=== PATIENT | male | born 1965 | race Two or more races ===

== ENCOUNTER 2019-09-29 09:36 | Inpatient (IN) | payer BC, OTHER ==
[~2019-09-29] VITALS: Ht 172.7 cm; Wt 80.0 kg
[~2019-09-29 09:36] MED LIST: CIPR500T3 PO
[2019-09-29] MEDS ORDERED: DOXYCYCLINE 100 MG in DEXTROSE 5% 250 ML IVPB ONE (10:30)
[2019-09-29] MEDS ORDERED: CEFTRIAXONE PMX 1GM/50ML 50 ML IVPB ONE (10:30)
--- NOTE | 2019-09-29 10:33 | NUR ---
PT STATES FOUND OUT HE WAS COVID19 POSITIVE 09/23/19. STATES INCREASING COUGH SINCE WITH SOME SOB. PT PLACED ON MONITORS AND 2L O2 VIA NC TO MAINTAIN SAT >90%. IV STARTED, LABS AND BLOOS CULTURES X1 DRAWN. LABE AT BEDSIDE FOR REMAINING DRAW. PT CURRENTLY PROTECTING OWN AIRWAY WELL, NO RESPIR DISTRESS, HOWEVER PT WITH VERY FREQUENT COUGHING. WILL FOLLOW ORDERS.
[2019-09-29] MEDS ORDERED: CEFTRIAXONE PMX 1GM/50ML 50 ML ONE (10:42)
[2019-09-29 11:01] LABS: ALANINE AMINOTRANSFERASE 46 U/L (12-78); ALBUMIN 3.4 g/dL (3.4-5.0); ANION GAP 7 mmol/L (5-15); CHLORIDE 100 mmol/L (98-107); CREATININE 1.07 mg/dL (0.7-1.3)
[2019-09-29 11:08] LABS: ALKALINE PHOSPHATASE 47 U/L (45-117); BILIRUBIN,TOTAL 1.1 mg/dL (0.2-1.0); TOTAL PROTEIN 8.9 g/dL (6.4-8.2)
[2019-09-29 11:09] LABS: BASOPHILS # (AUTO) 0.05 x10^3/uL (0-0.1); BASOPHILS % (AUTO) 0 % (0-1); EOSINOPHILS # (AUTO) 0.03 x10^3/uL (0-0.4); EOSINOPHILS % (AUTO) 0 % (1-7); LYMPHOCYTES # (AUTO) 1.86 x10^3/uL (1-3.4); LYMPHOCYTES % (AUTO) 14 % (22-44); MD NO; MEAN CORPUSCULAR HEMOGLOBIN 29.3 pg (27.5-34.5); MEAN CORPUSCULAR HGB CONC 32.6 g/dL (33.2-36.2); MEAN CORPUSCULAR VOLUME 89.8 fL (81-97); MONOCYTES # (AUTO) 0.78 x10^3/uL (0.2-0.8); MONOCYTES % (AUTO) 6 % (2-9); NEUTROPHILS # (AUTO) 10.65 x10^3/uL (1.8-6.8); NEUTROPHILS % (AUTO) 80 % (42-75); PLATELET COUNT 165 x10^3/uL (130-400); RED BLOOD COUNT 5.61 x10^6/uL (4.38-5.82)
[2019-09-29 11:48] LABS: D-DIMER (DIC) 0.62 ug/mlFEU (0.00-0.52); PROTIME 11.7 Seconds (9.6-11.5)
--- NOTE | 2019-09-29 12:13 | NUR ---
PT RESTING IN BED, REMAINS ON MONITORS. IVABX INFUSING PER ORDERS. NO RESPIR DISTRESS, PROTECTING OWN AIRWAY WELL. CONT TO MONITOR.
--- NOTE | 2019-09-29 13:45 | NUR ---
PT RESTING IN BED, REMAINS ON MONITORS, VSS. PT REMAINS AWARE OF POC, TO BE [facility] ADMIT. CONT TO MONITOR.
--- NOTE | 2019-09-29 14:50 | NUR ---
PT GIVEN URINAL, RESTING IN BED. PT REMAINS ON MONITORS, VSS. NO RESPIR DISTRESS NOTED, PT PROTECTING OWN AIRWAY WELL. PT WILL BE ER HOLD, AWAITING ADMIT BED. CONT TO MONITOR.
--- NOTE | 2019-09-29 15:00 | NUR ---
PT GIVEN WATER PER REQUEST.
--- NOTE | 2019-09-29 15:05 | NUR ---
ADMITING MD AT BEDSIDE FOR ASSESSMENT.
--- NOTE | 2019-09-29 15:26 | NUR ---
PT DOES NOT WANT ANY INFORMATION RELEASED TO FAMILY AND FRIENDS.
[2019-09-29] MEDS ORDERED: LABETALOL 5MG/ML, 20ML IVPush PRN (15:30)
[2019-09-29] MEDS ORDERED: GUAIFENESIN/DM 200-20MG, 10ML UDC PO PRN (15:30)
[2019-09-29] MEDS ORDERED: ENOXAPARIN 60 MG/0.6 ML SQ SCH (15:30)
[2019-09-29] MEDS ORDERED: ONDANSETRON 2MG/ML, 2ML IVPush PRN (15:30)
[2019-09-29] MEDS ORDERED: ACETAMINOPHEN 325 MG TABLET PO PRN (15:30)
[2019-09-29 15:39] LABS: FREE T4 (FREE THYROXINE) 1.37 ng/dL (0.76-1.46)
[2019-09-29] MEDS ORDERED: ENOXAPARIN 60 MG/0.6 ML ONE (16:05)
[2019-09-29] MEDS ORDERED: methylPREDNISolone SOD SUCC 40 MG/ML ONE (16:05)
[2019-09-29] MEDS: methylPREDNISolone SOD SUCC 40 MG/ML IVPush SCH (16:14)
[2019-09-29] MEDS: LACTATED RINGERS 1,000 ML IV SCH (16:15)
--- NOTE | 2019-09-29 16:29 | NUR ---
REPORT GIVEN TO SHIRLEY JIM. PT OK TO TRANSFER TO FLOOR.
[2019-09-29] MEDS: ASCORBIC ACID 500 MG TABLET PO SCH ×2 (17:14→22:22)
[2019-09-29 17:27] VITALS: BP 124/79
[2019-09-29] MEDS: ALBUTEROL HFA 90 MCG/SPRAY INH SCH ×2 (17:39→22:22)
[2019-09-29 20:24] VITALS: BP 114/74
[2019-09-29] MEDS: MELATONIN 5 MG TABLET PO SCH (22:22)
[2019-09-29] MEDS: FAMOTIDINE 20 MG TABLET PO SCH (22:22)
[2019-09-30 01:04] VITALS: BP 117/74
[2019-09-30] MEDS: LACTATED RINGERS 1,000 ML IV SCH ×3 (01:30→20:15)
[2019-09-30] MEDS: ALBUTEROL HFA 90 MCG/SPRAY INH SCH ×4 (02:42→20:29)
[2019-09-30] MEDS: methylPREDNISolone SOD SUCC 40 MG/ML IVPush SCH ×2 (02:42→17:08)
[2019-09-30 06:45] LABS: MEAN CORPUSCULAR HEMOGLOBIN 29.6 pg (27.5-34.5); MEAN CORPUSCULAR HGB CONC 33.2 g/dL (33.2-36.2); MEAN PLATELET VOLUME 10.9 fL (7.4-10.4); PLATELET COUNT 162 x10^3/uL (130-400); RED BLOOD COUNT 5.01 x10^6/uL (4.38-5.82); RED CELL DISTRIBUTION WIDTH 12.9 % (9.4-14.8)
[2019-09-30 06:59] LABS: ANION GAP 11 mmol/L (5-15); CHLORIDE 102 mmol/L (98-107)
[2019-09-30 07:02] LABS: CREATININE 0.88 mg/dL (0.7-1.3)
[2019-09-30 07:15] LABS: BASOPHILS # (AUTO) 0.01 x10^3/uL (0-0.1); BASOPHILS % (AUTO) 0 % (0-1); EOSINOPHILS # (AUTO) 0.02 x10^3/uL (0-0.4); EOSINOPHILS % (AUTO) 0 % (1-7); LYMPHOCYTES # (AUTO) 0.49 x10^3/uL (1-3.4); LYMPHOCYTES % (AUTO) 3 % (22-44); MD SCAN; MONOCYTES # (AUTO) 0.22 x10^3/uL (0.2-0.8); MONOCYTES % (AUTO) 1 % (2-9); NEUTROPHILS # (AUTO) 14.78 x10^3/uL (1.8-6.8); NEUTROPHILS % (AUTO) 95 % (42-75)
[2019-09-30 07:17] LABS: C-REACTIVE PROTEIN, QUANT > 19.00 mg/dL (0.02-0.49)
[2019-09-30 07:31] VITALS: BP 109/70
[2019-09-30] MEDS: SENNA/DOCUSATE TABLET PO SCH (08:04)
[2019-09-30] MEDS: ZINC SULFATE 220 MG CAPSULE PO SCH (08:30)
[2019-09-30] MEDS: ASCORBIC ACID 500 MG TABLET PO SCH ×3 (08:30→20:30)
[2019-09-30] MEDS: CHOLECALCIFEROL 1,000 UNIT TABLET PO SCH (08:30)
[2019-09-30] MEDS ORDERED: OMNIPAQUE 350 MG/ML, 100ML BOTTLE ONE (10:31)
[2019-09-30] MEDS: FAMOTIDINE 20 MG TABLET PO SCH ×2 (11:49→20:30)
[2019-09-30] MEDS: ENOXAPARIN 60 MG/0.6 ML SQ SCH ×2 (11:49→20:29)
[2019-09-30] MEDS: INSULIN LISPRO 100 UNITS/ML, PEN SQ-INSULIN SCH ×3 (12:02→20:31)
[2019-09-30] MEDS: MELATONIN 5 MG TABLET PO SCH (20:30)
[2019-10-01] MEDS: ALBUTEROL HFA 90 MCG/SPRAY INH SCH ×4 (03:00→21:44)
[2019-10-01] MEDS: methylPREDNISolone SOD SUCC 40 MG/ML IVPush SCH ×2 (03:36→15:41)
[2019-10-01 05:20] LABS: MEAN CORPUSCULAR HEMOGLOBIN 29.9 pg (27.5-34.5); MEAN CORPUSCULAR HGB CONC 32.9 g/dL (33.2-36.2); MEAN PLATELET VOLUME 11.2 fL (7.4-10.4); PLATELET COUNT 265 x10^3/uL (130-400); RED BLOOD COUNT 5.16 x10^6/uL (4.38-5.82); RED CELL DISTRIBUTION WIDTH 13.1 % (9.4-14.8)
[2019-10-01 05:27] LABS: ANION GAP 8 mmol/L (5-15); CALCIUM 9.1 mg/dL (8.5-10.1); CHLORIDE 101 mmol/L (98-107); CREATININE 0.99 mg/dL (0.7-1.3)
[2019-10-01 05:47] LABS: MD YES
[2019-10-01 05:48] LABS: <PLATELET ESTIMATE> ADEQUATE; <RBC MORPHOLOGY> NORMAL; BAND#(MANUAL) 0.82 x10^3/uL; BANDS%(MANUAL) 4 % (0-7); LARGE PLATELETS 1+; LYMPH#(MANUAL) 1.44 x10^3/uL (1-3.4); LYMPHS% (MANUAL) 7 % (22-44); MONOS#(MANUAL) 0.41 x10^3/uL (0.3-2.7); MONOS% (MANUAL) 2 % (2-9); SEG#(MANUAL) 17.84 x10^3/uL (1.8-6.8); SEGS% (MANUAL) 87 % (42-75)
[2019-10-01] MEDS: INSULIN LISPRO 100 UNITS/ML, PEN SQ-INSULIN SCH ×4 (06:31→21:43)
[2019-10-01] MEDS: LACTATED RINGERS 1,000 ML IV SCH (07:06)
[2019-10-01] MEDS: SENNA/DOCUSATE TABLET PO SCH (07:07)
[2019-10-01 07:36] LABS: BILIRUBIN,TOTAL 0.6 mg/dL (0.2-1.0)
[2019-10-01 07:45] LABS: INTERNATIONAL NORMALIZED RATIO 1.05 (0.93-1.1); PROTHROMBIN TIME 11.1 Seconds (9.6-11.5)
[2019-10-01] MEDS: CEFTRIAXONE PMX 2GM/50ML 50 ML IV SCH (07:58)
[2019-10-01] MEDS ORDERED: REMDESIVIR 200 MG in SODIUM CHLORIDE 0.9% 210 ML IVPB ONE (08:00)
[2019-10-01] MEDS: CHOLECALCIFEROL 1,000 UNIT TABLET PO SCH (08:08)
[2019-10-01] MEDS: FAMOTIDINE 20 MG TABLET PO SCH ×2 (08:08→21:44)
[2019-10-01] MEDS: ASCORBIC ACID 500 MG TABLET PO SCH ×3 (08:08→21:44)
[2019-10-01] MEDS: ZINC SULFATE 220 MG CAPSULE PO SCH (08:10)
[2019-10-01] MEDS: ENOXAPARIN 60 MG/0.6 ML SQ SCH ×2 (08:10→21:44)
[2019-10-01] MEDS: AZITHROMYCIN 500 MG in SODIUM CHLORIDE 0.9% 250 ML IV SCH (08:17)
[2019-10-01] MEDS ORDERED: FUROSEMIDE 20 MG/2 ML IV ONE (10:30)
[2019-10-01] MEDS: POTASSIUM CHLORIDE 20 MEQ PACKET PO SCH (15:44)
[2019-10-01] MEDS: MELATONIN 5 MG TABLET PO SCH (21:44)
[2019-10-02] MEDS: methylPREDNISolone SOD SUCC 40 MG/ML IVPush SCH ×2 (03:29→16:47)
[2019-10-02] MEDS: ALBUTEROL HFA 90 MCG/SPRAY INH SCH ×4 (03:30→21:11)
[2019-10-02 05:30] LABS: ANION GAP 10 mmol/L (5-15); CALCIUM 8.9 mg/dL (8.5-10.1); CHLORIDE 103 mmol/L (98-107); CREATININE 0.76 mg/dL (0.7-1.3)
[2019-10-02 05:36] LABS: BASOPHILS # (AUTO) 0.03 x10^3/uL (0-0.1); BASOPHILS % (AUTO) 0 % (0-1); EOSINOPHILS # (AUTO) 0.07 x10^3/uL (0-0.4); EOSINOPHILS % (AUTO) 0 % (1-7); LYMPHOCYTES % (AUTO) 4 % (22-44); MD NO; MEAN CORPUSCULAR HEMOGLOBIN 29.4 pg (27.5-34.5); MEAN CORPUSCULAR HGB CONC 33.2 g/dL (33.2-36.2); MEAN CORPUSCULAR VOLUME 88.8 fL (81-97); MEAN PLATELET VOLUME 10.5 fL (7.4-10.4); MONOCYTES # (AUTO) 0.31 x10^3/uL (0.2-0.8); MONOCYTES % (AUTO) 2 % (2-9); NEUTROPHILS % (AUTO) 94 % (42-75); PLATELET COUNT 248 x10^3/uL (130-400); RED BLOOD COUNT 4.69 x10^6/uL (4.38-5.82); RED CELL DISTRIBUTION WIDTH 13.2 % (9.4-14.8)
[2019-10-02] MEDS ORDERED: POTASSIUM CHLORIDE 20 MEQ TAB.ER.PRT PO ONE (07:30)
[2019-10-02] MEDS: AZITHROMYCIN 500 MG in SODIUM CHLORIDE 0.9% 250 ML IV SCH (07:54)
[2019-10-02] MEDS: CEFTRIAXONE PMX 2GM/50ML 50 ML IV SCH (08:00)
[2019-10-02] MEDS: ENOXAPARIN 60 MG/0.6 ML SQ SCH ×2 (08:09→21:11)
[2019-10-02] MEDS: SENNA/DOCUSATE TABLET PO SCH (08:09)
[2019-10-02] MEDS: ASCORBIC ACID 500 MG TABLET PO SCH ×3 (08:11→21:11)
[2019-10-02] MEDS: ZINC SULFATE 220 MG CAPSULE PO SCH (08:11)
[2019-10-02] MEDS: CHOLECALCIFEROL 1,000 UNIT TABLET PO SCH (08:11)
[2019-10-02] MEDS: POTASSIUM CHLORIDE 20 MEQ PACKET PO SCH (08:12)
[2019-10-02] MEDS: FAMOTIDINE 20 MG TABLET PO SCH ×2 (08:14→21:11)
[2019-10-02] MEDS: INSULIN LISPRO 100 UNITS/ML, PEN SQ-INSULIN SCH ×4 (08:14→21:24)
[2019-10-02] MEDS ORDERED: POTASSIUM CHLORIDE 20 MEQ PACKET ONE (09:07)
[2019-10-02] MEDS: REMDESIVIR 100 MG in SODIUM CHLORIDE 0.9% 230 ML IVPB SCH (09:24)
[2019-10-02] MEDS ORDERED: FUROSEMIDE 40 MG/4 ML IV ONE (09:30)
[2019-10-02] MEDS: MELATONIN 5 MG TABLET PO SCH (21:11)
[2019-10-03] MEDS: methylPREDNISolone SOD SUCC 40 MG/ML IVPush SCH ×2 (03:15→16:15)
[2019-10-03] MEDS: ALBUTEROL HFA 90 MCG/SPRAY INH SCH ×4 (03:15→21:06)
[2019-10-03 06:29] LABS: ALBUMIN 2.6 g/dL (3.4-5.0)
[2019-10-03 06:31] LABS: BILIRUBIN,TOTAL 0.5 mg/dL (0.2-1.0)
[2019-10-03 06:37] LABS: INTERNATIONAL NORMALIZED RATIO 1.15 (0.93-1.1); PROTHROMBIN TIME 12.2 Seconds (9.6-11.5)
[2019-10-03] MEDS: AZITHROMYCIN 500 MG in SODIUM CHLORIDE 0.9% 250 ML IV SCH (07:58)
[2019-10-03] MEDS: CEFTRIAXONE PMX 2GM/50ML 50 ML IV SCH (07:58)
[2019-10-03] MEDS: POTASSIUM CHLORIDE 20 MEQ TAB.ER.PRT PO SCH (08:45)
[2019-10-03] MEDS: INSULIN LISPRO 100 UNITS/ML, PEN SQ-INSULIN SCH ×4 (08:45→21:24)
[2019-10-03] MEDS: CHOLECALCIFEROL 1,000 UNIT TABLET PO SCH (08:45)
[2019-10-03] MEDS: ZINC SULFATE 220 MG CAPSULE PO SCH (08:45)
[2019-10-03] MEDS: FAMOTIDINE 20 MG TABLET PO SCH ×2 (08:46→21:06)
[2019-10-03] MEDS: ASCORBIC ACID 500 MG TABLET PO SCH ×3 (08:46→21:05)
[2019-10-03] MEDS: SENNA/DOCUSATE TABLET PO SCH (08:46)
[2019-10-03] MEDS: ENOXAPARIN 60 MG/0.6 ML SQ SCH ×2 (08:46→21:05)
[2019-10-03] MEDS ORDERED: FUROSEMIDE 40 MG/4 ML IV ONE (09:00)
[2019-10-03] MEDS: REMDESIVIR 100 MG in SODIUM CHLORIDE 0.9% 230 ML IVPB SCH (09:38)
[2019-10-03] MEDS: MELATONIN 5 MG TABLET PO SCH (21:05)
[2019-10-04] MEDS: methylPREDNISolone SOD SUCC 40 MG/ML IVPush SCH ×2 (03:22→16:12)
[2019-10-04] MEDS: ALBUTEROL HFA 90 MCG/SPRAY INH SCH ×4 (03:22→22:06)
[2019-10-04 05:41] LABS: INTERNATIONAL NORMALIZED RATIO 1.1 (0.93-1.1); PROTHROMBIN TIME 11.7 Seconds (9.6-11.5)
[2019-10-04 05:44] LABS: BASOPHILS # (AUTO) 0.04 x10^3/uL (0-0.1); BASOPHILS % (AUTO) 0 % (0-1); EOSINOPHILS % (AUTO) 0 % (1-7); LYMPHOCYTES # (AUTO) 0.55 x10^3/uL (1-3.4); LYMPHOCYTES % (AUTO) 5 % (22-44); MD NO; MEAN CORPUSCULAR HEMOGLOBIN 29.8 pg (27.5-34.5); MEAN CORPUSCULAR HGB CONC 33.1 g/dL (33.2-36.2); MEAN PLATELET VOLUME 9.9 fL (7.4-10.4); MONOCYTES # (AUTO) 0.34 x10^3/uL (0.2-0.8); MONOCYTES % (AUTO) 3 % (2-9); NEUTROPHILS # (AUTO) 9.97 x10^3/uL (1.8-6.8); NEUTROPHILS % (AUTO) 91 % (42-75); PLATELET COUNT 317 x10^3/uL (130-400); RED BLOOD COUNT 4.93 x10^6/uL (4.38-5.82); RED CELL DISTRIBUTION WIDTH 13.3 % (9.4-14.8)
[2019-10-04 05:45] LABS: ALANINE AMINOTRANSFERASE 117 U/L (12-78); ANION GAP 7 mmol/L (5-15); CALCIUM 8.5 mg/dL (8.5-10.1); CHLORIDE 106 mmol/L (98-107); CREATININE 0.76 mg/dL (0.7-1.3)
[2019-10-04] MEDS: INSULIN LISPRO 100 UNITS/ML, PEN SQ-INSULIN SCH ×4 (08:42→22:07)
[2019-10-04] MEDS ORDERED: FUROSEMIDE 40 MG/4 ML IV ONE ×2 (09:00)
[2019-10-04] MEDS: SENNA/DOCUSATE TABLET PO SCH (09:00)
[2019-10-04] MEDS: CEFTRIAXONE PMX 2GM/50ML 50 ML IV SCH (09:07)
[2019-10-04] MEDS: ENOXAPARIN 60 MG/0.6 ML SQ SCH ×2 (09:11→22:06)
[2019-10-04] MEDS: AZITHROMYCIN 500 MG in SODIUM CHLORIDE 0.9% 250 ML IV SCH (09:28)
[2019-10-04] MEDS: FAMOTIDINE 20 MG TABLET PO SCH ×2 (10:01→22:07)
[2019-10-04] MEDS: ASCORBIC ACID 500 MG TABLET PO SCH ×3 (10:01→22:06)
[2019-10-04] MEDS: ZINC SULFATE 220 MG CAPSULE PO SCH (10:01)
[2019-10-04] MEDS: CHOLECALCIFEROL 1,000 UNIT TABLET PO SCH (10:02)
[2019-10-04] MEDS: POTASSIUM CHLORIDE 20 MEQ TAB.ER.PRT PO SCH (10:02)
[2019-10-04] MEDS: REMDESIVIR 100 MG in SODIUM CHLORIDE 0.9% 230 ML IVPB SCH (10:16)
[2019-10-04] MEDS ORDERED: INSULIN GLARGINE 100 UNITS/ML, PEN SQ-INSULIN SCH (21:00)
[2019-10-04] MEDS: MELATONIN 5 MG TABLET PO SCH (22:06)
[2019-10-04] MEDS: INSULIN GLARGINE 100 UNITS/ML, PEN SQ-INSULIN SCH (22:13)
[2019-10-05] MEDS: ALBUTEROL HFA 90 MCG/SPRAY INH SCH ×4 (03:16→21:02)
[2019-10-05] MEDS: methylPREDNISolone SOD SUCC 40 MG/ML IVPush SCH ×2 (03:16→15:46)
[2019-10-05 04:56] LABS: ALANINE AMINOTRANSFERASE 125 U/L (12-78); ALBUMIN 2.5 g/dL (3.4-5.0); ANION GAP 6 mmol/L (5-15); CALCIUM 8.5 mg/dL (8.5-10.1); CHLORIDE 103 mmol/L (98-107); CREATININE 0.76 mg/dL (0.7-1.3)
[2019-10-05 04:58] LABS: ALKALINE PHOSPHATASE 48 U/L (45-117); BILIRUBIN,TOTAL 0.5 mg/dL (0.2-1.0); TOTAL PROTEIN 7.2 g/dL (6.4-8.2)
[2019-10-05] MEDS: CEFTRIAXONE PMX 2GM/50ML 50 ML IV SCH (05:51)
[2019-10-05] MEDS: AZITHROMYCIN 500 MG in SODIUM CHLORIDE 0.9% 250 ML IV SCH (08:32)
[2019-10-05] MEDS: ASCORBIC ACID 500 MG TABLET PO SCH ×3 (08:34→21:02)
[2019-10-05] MEDS: POTASSIUM CHLORIDE 20 MEQ TAB.ER.PRT PO SCH (08:35)
[2019-10-05] MEDS: CHOLECALCIFEROL 1,000 UNIT TABLET PO SCH (08:35)
[2019-10-05] MEDS: ZINC SULFATE 220 MG CAPSULE PO SCH (08:35)
[2019-10-05] MEDS: SENNA/DOCUSATE TABLET PO SCH (08:35)
[2019-10-05] MEDS: FAMOTIDINE 20 MG TABLET PO SCH ×2 (08:36→21:01)
[2019-10-05] MEDS: ENOXAPARIN 60 MG/0.6 ML SQ SCH ×2 (08:37→21:01)
[2019-10-05] MEDS: INSULIN LISPRO 100 UNITS/ML, PEN SQ-INSULIN SCH ×4 (08:42→21:15)
[2019-10-05] MEDS: INSULIN GLARGINE 100 UNITS/ML, PEN SQ-INSULIN SCH ×2 (08:43→21:16)
[2019-10-05] MEDS: REMDESIVIR 100 MG in SODIUM CHLORIDE 0.9% 230 ML IVPB SCH (12:04)
[2019-10-05] MEDS: MELATONIN 5 MG TABLET PO SCH (21:01)
[2019-10-06] MEDS: methylPREDNISolone SOD SUCC 40 MG/ML IVPush SCH ×2 (03:53→15:29)
[2019-10-06] MEDS: ALBUTEROL HFA 90 MCG/SPRAY INH SCH ×4 (03:53→20:53)
[2019-10-06 05:11] LABS: BASOPHILS # (AUTO) 0.02 x10^3/uL (0-0.1); BASOPHILS % (AUTO) 0 % (0-1); EOSINOPHILS # (AUTO) 0.03 x10^3/uL (0-0.4); EOSINOPHILS % (AUTO) 0 % (1-7); LYMPHOCYTES # (AUTO) 1.03 x10^3/uL (1-3.4); LYMPHOCYTES % (AUTO) 9 % (22-44); MD NO; MEAN CORPUSCULAR HEMOGLOBIN 29.4 pg (27.5-34.5); MEAN CORPUSCULAR HGB CONC 32.8 g/dL (33.2-36.2); MEAN CORPUSCULAR VOLUME 89.7 fL (81-97); MEAN PLATELET VOLUME 9.3 fL (7.4-10.4); MONOCYTES # (AUTO) 0.35 x10^3/uL (0.2-0.8); MONOCYTES % (AUTO) 3 % (2-9); NEUTROPHILS # (AUTO) 10.49 x10^3/uL (1.8-6.8); NEUTROPHILS % (AUTO) 88 % (42-75); PLATELET COUNT 355 x10^3/uL (130-400); RED BLOOD COUNT 5.21 x10^6/uL (4.38-5.82); RED CELL DISTRIBUTION WIDTH 13.1 % (9.4-14.8)
[2019-10-06 05:18] LABS: ALANINE AMINOTRANSFERASE 96 U/L (12-78); ALBUMIN 2.5 g/dL (3.4-5.0); ANION GAP 6 mmol/L (5-15); CALCIUM 8.5 mg/dL (8.5-10.1); CHLORIDE 105 mmol/L (98-107); CREATININE 0.74 mg/dL (0.7-1.3)
[2019-10-06 05:25] LABS: ALKALINE PHOSPHATASE 55 U/L (45-117); BILIRUBIN,TOTAL 0.4 mg/dL (0.2-1.0)
[2019-10-06] MEDS: CEFTRIAXONE PMX 2GM/50ML 50 ML IV SCH (08:07)
[2019-10-06] MEDS: ENOXAPARIN 60 MG/0.6 ML SQ SCH (08:10)
[2019-10-06] MEDS: CHOLECALCIFEROL 1,000 UNIT TABLET PO SCH (08:11)
[2019-10-06] MEDS: FAMOTIDINE 20 MG TABLET PO SCH ×2 (08:12→20:33)
[2019-10-06] MEDS: ASCORBIC ACID 500 MG TABLET PO SCH ×3 (08:12→20:33)
[2019-10-06] MEDS: SENNA/DOCUSATE TABLET PO SCH (08:12)
[2019-10-06] MEDS: POTASSIUM CHLORIDE 20 MEQ TAB.ER.PRT PO SCH (08:13)
[2019-10-06] MEDS: ZINC SULFATE 220 MG CAPSULE PO SCH (08:14)
[2019-10-06] MEDS: INSULIN GLARGINE 100 UNITS/ML, PEN SQ-INSULIN SCH ×2 (08:18→20:48)
[2019-10-06] MEDS: INSULIN LISPRO 100 UNITS/ML, PEN SQ-INSULIN SCH ×4 (08:18→20:48)
[2019-10-06] MEDS: AZITHROMYCIN 500 MG in SODIUM CHLORIDE 0.9% 250 ML IV SCH (08:46)
[2019-10-06] MEDS: ENOXAPARIN 80 MG/0.8 ML SQ SCH (20:33)
[2019-10-06] MEDS: MELATONIN 5 MG TABLET PO SCH (20:34)
[2019-10-07] MEDS: ALBUTEROL HFA 90 MCG/SPRAY INH SCH ×4 (03:16→20:30)
[2019-10-07] MEDS: methylPREDNISolone SOD SUCC 40 MG/ML IVPush SCH ×3 (03:16→20:34)
[2019-10-07] MEDS: CEFTRIAXONE PMX 2GM/50ML 50 ML IV SCH (06:49)
[2019-10-07] MEDS: INSULIN LISPRO 100 UNITS/ML, PEN SQ-INSULIN SCH ×4 (07:00→20:42)
[2019-10-07] MEDS: ZINC SULFATE 220 MG CAPSULE PO SCH (08:40)
[2019-10-07] MEDS: ENOXAPARIN 80 MG/0.8 ML SQ SCH ×2 (08:40→20:30)
[2019-10-07] MEDS: FAMOTIDINE 20 MG TABLET PO SCH ×2 (08:40→20:30)
[2019-10-07] MEDS: AZITHROMYCIN 500 MG in SODIUM CHLORIDE 0.9% 250 ML IV SCH (08:40)
[2019-10-07] MEDS: ASCORBIC ACID 500 MG TABLET PO SCH ×3 (08:41→20:30)
[2019-10-07] MEDS: CHOLECALCIFEROL 1,000 UNIT TABLET PO SCH (08:41)
[2019-10-07] MEDS: POTASSIUM CHLORIDE 20 MEQ TAB.ER.PRT PO SCH (08:42)
[2019-10-07] MEDS: SENNA/DOCUSATE TABLET PO SCH (08:42)
[2019-10-07] MEDS: INSULIN GLARGINE 100 UNITS/ML, PEN SQ-INSULIN SCH ×2 (08:44→20:42)
[2019-10-07] MEDS: MELATONIN 5 MG TABLET PO SCH (20:30)
[2019-10-08] MEDS: ALBUTEROL HFA 90 MCG/SPRAY INH SCH ×4 (02:56→21:22)
[2019-10-08] MEDS: methylPREDNISolone SOD SUCC 40 MG/ML IVPush SCH ×4 (02:56→21:21)
[2019-10-08 06:14] LABS: ALANINE AMINOTRANSFERASE 64 U/L (12-78); ALBUMIN 2.6 g/dL (3.4-5.0); ANION GAP 6 mmol/L (5-15); C-REACTIVE PROTEIN, QUANT 0.73 mg/dL (0.02-0.49); CALCIUM 8.5 mg/dL (8.5-10.1); CHLORIDE 102 mmol/L (98-107); CREATININE 0.81 mg/dL (0.7-1.3)
[2019-10-08 06:17] LABS: ALKALINE PHOSPHATASE 63 U/L (45-117); BILIRUBIN,TOTAL 0.5 mg/dL (0.2-1.0); TOTAL PROTEIN 6.2 g/dL (6.4-8.2)
[2019-10-08] MEDS: INSULIN LISPRO 100 UNITS/ML, PEN SQ-INSULIN SCH ×4 (07:00→21:32)
[2019-10-08] MEDS: CEFTRIAXONE PMX 2GM/50ML 50 ML IV SCH (08:10)
[2019-10-08] MEDS: SENNA/DOCUSATE TABLET PO SCH (09:00)
[2019-10-08] MEDS: ENOXAPARIN 80 MG/0.8 ML SQ SCH ×2 (09:16→21:21)
[2019-10-08] MEDS: CHOLECALCIFEROL 1,000 UNIT TABLET PO SCH (09:16)
[2019-10-08] MEDS: AZITHROMYCIN 500 MG in SODIUM CHLORIDE 0.9% 250 ML IV SCH (09:16)
[2019-10-08] MEDS: FAMOTIDINE 20 MG TABLET PO SCH ×2 (09:18→21:22)
[2019-10-08] MEDS: ASCORBIC ACID 500 MG TABLET PO SCH ×3 (09:19→21:22)
[2019-10-08] MEDS: POTASSIUM CHLORIDE 20 MEQ TAB.ER.PRT PO SCH (09:19)
[2019-10-08] MEDS: ZINC SULFATE 220 MG CAPSULE PO SCH (09:19)
[2019-10-08] MEDS: INSULIN GLARGINE 100 UNITS/ML, PEN SQ-INSULIN SCH (09:20)
[2019-10-08] MEDS ORDERED: INSULIN LISPRO 100 UNITS/ML, PEN SQ-INSULIN SCH (17:00)
[2019-10-08] MEDS ORDERED: INSULIN GLARGINE 100 UNITS/ML, PEN SQ-INSULIN SCH (21:00)
[2019-10-08] MEDS: MELATONIN 5 MG TABLET PO SCH (21:22)
[2019-10-09] MEDS: ALBUTEROL HFA 90 MCG/SPRAY INH SCH ×4 (03:05→21:31)
[2019-10-09] MEDS: methylPREDNISolone SOD SUCC 40 MG/ML IVPush SCH ×3 (03:05→21:30)
[2019-10-09] MEDS ORDERED: INSULIN LISPRO 100 UNITS/ML, PEN SQ-INSULIN SCH (07:00)
[2019-10-09] MEDS: INSULIN LISPRO 100 UNITS/ML, PEN SQ-INSULIN SCH ×4 (07:00→21:29)
[2019-10-09] MEDS: ENOXAPARIN 80 MG/0.8 ML SQ SCH ×2 (08:00→21:30)
[2019-10-09] MEDS: CHOLECALCIFEROL 1,000 UNIT TABLET PO SCH (08:01)
[2019-10-09] MEDS: ASCORBIC ACID 500 MG TABLET PO SCH ×3 (08:01→21:30)
[2019-10-09] MEDS: POTASSIUM CHLORIDE 20 MEQ TAB.ER.PRT PO SCH (08:01)
[2019-10-09] MEDS: ZINC SULFATE 220 MG CAPSULE PO SCH (08:02)
[2019-10-09] MEDS: FAMOTIDINE 20 MG TABLET PO SCH ×2 (08:02→21:30)
[2019-10-09] MEDS: INSULIN GLARGINE 100 UNITS/ML, PEN SQ-INSULIN SCH ×2 (08:03→21:29)
[2019-10-09] MEDS: SENNA/DOCUSATE TABLET PO SCH (09:00)
[2019-10-09 20:05] VITALS: BP 159/87
[2019-10-09] MEDS: MELATONIN 5 MG TABLET PO SCH (21:30)
[2019-10-10 01:12] VITALS: BP_SYST 117; BP_DIAS 2; BP_DIAS 72
[2019-10-10] MEDS: methylPREDNISolone SOD SUCC 40 MG/ML IVPush SCH ×3 (03:18→20:19)
[2019-10-10] MEDS: ALBUTEROL HFA 90 MCG/SPRAY INH SCH ×4 (03:18→20:19)
[2019-10-10] MEDS: INSULIN LISPRO 100 UNITS/ML, PEN SQ-INSULIN SCH ×4 (07:00→20:43)
[2019-10-10 08:22] VITALS: BP 119/74
[2019-10-10] MEDS: SENNA/DOCUSATE TABLET PO SCH (09:00)
[2019-10-10] MEDS: ENOXAPARIN 80 MG/0.8 ML SQ SCH ×2 (09:08→20:18)
[2019-10-10] MEDS: ZINC SULFATE 220 MG CAPSULE PO SCH (09:08)
[2019-10-10] MEDS: ASCORBIC ACID 500 MG TABLET PO SCH ×3 (09:08→20:19)
[2019-10-10] MEDS: POTASSIUM CHLORIDE 20 MEQ TAB.ER.PRT PO SCH (09:09)
[2019-10-10] MEDS: CHOLECALCIFEROL 1,000 UNIT TABLET PO SCH (09:09)
[2019-10-10] MEDS: FAMOTIDINE 20 MG TABLET PO SCH ×2 (09:10→20:19)
[2019-10-10] MEDS: INSULIN GLARGINE 100 UNITS/ML, PEN SQ-INSULIN SCH ×2 (09:12→20:42)
[2019-10-10 12:42] VITALS: BP 114/68
[2019-10-10 18:33] VITALS: BP 118/73
[2019-10-10] MEDS: MELATONIN 5 MG TABLET PO SCH (20:19)
[2019-10-11 00:13] VITALS: BP 113/65
[2019-10-11] MEDS: methylPREDNISolone SOD SUCC 40 MG/ML IVPush SCH ×3 (02:56→20:40)
[2019-10-11] MEDS: ALBUTEROL HFA 90 MCG/SPRAY INH SCH ×4 (02:59→20:39)
[2019-10-11] MEDS ORDERED: POTASSIUM CHLORIDE 10 MEQ TABLET.ER ONE (07:55)
[2019-10-11 07:58] VITALS: BP 115/65
[2019-10-11] MEDS: INSULIN LISPRO 100 UNITS/ML, PEN SQ-INSULIN SCH ×4 (08:02→20:41)
[2019-10-11] MEDS: ZINC SULFATE 220 MG CAPSULE PO SCH (08:03)
[2019-10-11] MEDS: ENOXAPARIN 80 MG/0.8 ML SQ SCH ×2 (08:03→20:39)
[2019-10-11] MEDS: INSULIN GLARGINE 100 UNITS/ML, PEN SQ-INSULIN SCH ×2 (08:03→20:41)
[2019-10-11] MEDS: POTASSIUM CHLORIDE 20 MEQ TAB.ER.PRT PO SCH (08:03)
[2019-10-11] MEDS: FAMOTIDINE 20 MG TABLET PO SCH ×2 (08:03→20:40)
[2019-10-11] MEDS: CHOLECALCIFEROL 1,000 UNIT TABLET PO SCH (08:03)
[2019-10-11] MEDS: SENNA/DOCUSATE TABLET PO SCH (08:03)
[2019-10-11] MEDS: ASCORBIC ACID 500 MG TABLET PO SCH ×3 (08:03→20:40)
[2019-10-11 08:08] VITALS: BP 120/74
[2019-10-11 13:27] VITALS: BP 125/83
[2019-10-11 18:40] VITALS: BP 117/69
[2019-10-11] MEDS: MELATONIN 5 MG TABLET PO SCH (20:40)
[2019-10-12 00:02] VITALS: BP 113/70
[2019-10-12] MEDS: ALBUTEROL HFA 90 MCG/SPRAY INH SCH ×4 (02:52→23:01)
[2019-10-12] MEDS: INSULIN LISPRO 100 UNITS/ML, PEN SQ-INSULIN SCH ×4 (07:00→20:41)
[2019-10-12] MEDS: INSULIN GLARGINE 100 UNITS/ML, PEN SQ-INSULIN SCH ×2 (08:23→20:41)
[2019-10-12] MEDS: SENNA/DOCUSATE TABLET PO SCH (08:24)
[2019-10-12] MEDS: ENOXAPARIN 80 MG/0.8 ML SQ SCH ×2 (08:24→20:05)
[2019-10-12] MEDS: FAMOTIDINE 20 MG TABLET PO SCH ×2 (08:24→20:05)
[2019-10-12] MEDS: ZINC SULFATE 220 MG CAPSULE PO SCH (08:25)
[2019-10-12] MEDS: ASCORBIC ACID 500 MG TABLET PO SCH ×3 (08:25→20:05)
[2019-10-12] MEDS: POTASSIUM CHLORIDE 20 MEQ TAB.ER.PRT PO SCH (08:25)
[2019-10-12] MEDS: CHOLECALCIFEROL 1,000 UNIT TABLET PO SCH (08:25)
[2019-10-12] MEDS: methylPREDNISolone SOD SUCC 40 MG/ML IVPush SCH ×2 (08:25→20:05)
[2019-10-12 08:30] VITALS: BP 118/75
[2019-10-12 12:15] VITALS: BP 118/73
[2019-10-12 19:00] VITALS: BP 122/69
[2019-10-12] MEDS: MELATONIN 5 MG TABLET PO SCH (20:05)
[2019-10-13 00:12] VITALS: BP 120/70
[2019-10-13] MEDS: ALBUTEROL HFA 90 MCG/SPRAY INH SCH ×4 (05:00→23:51)
[2019-10-13 05:49] LABS: CREATININE 0.69 mg/dL (0.7-1.3)
[2019-10-13] MEDS: INSULIN LISPRO 100 UNITS/ML, PEN SQ-INSULIN SCH ×4 (07:00→20:55)
[2019-10-13 08:16] VITALS: BP 110/65
[2019-10-13] MEDS: methylPREDNISolone SOD SUCC 40 MG/ML IVPush SCH (08:17)
[2019-10-13] MEDS: ASCORBIC ACID 500 MG TABLET PO SCH ×3 (08:17→20:55)
[2019-10-13] MEDS: ZINC SULFATE 220 MG CAPSULE PO SCH (08:18)
[2019-10-13] MEDS: ENOXAPARIN 80 MG/0.8 ML SQ SCH ×2 (08:18→20:54)
[2019-10-13] MEDS: POTASSIUM CHLORIDE 20 MEQ TAB.ER.PRT PO SCH (08:18)
[2019-10-13] MEDS: SENNA/DOCUSATE TABLET PO SCH (08:18)
[2019-10-13] MEDS: FAMOTIDINE 20 MG TABLET PO SCH ×2 (08:18→20:55)
[2019-10-13] MEDS: CHOLECALCIFEROL 1,000 UNIT TABLET PO SCH (08:18)
[2019-10-13] MEDS: INSULIN GLARGINE 100 UNITS/ML, PEN SQ-INSULIN SCH ×2 (08:19→20:54)
[2019-10-13 11:59] VITALS: BP 135/80
[2019-10-13 19:51] VITALS: BP 132/73
[2019-10-13] MEDS: MELATONIN 5 MG TABLET PO SCH (20:55)
[2019-10-13 23:59] VITALS: BP 127/74
[2019-10-14 02:00] VITALS: BP 127/74
[2019-10-14] MEDS: ALBUTEROL HFA 90 MCG/SPRAY INH SCH ×4 (05:23→23:33)
[2019-10-14 07:15] VITALS: BP 124/78
[2019-10-14] MEDS: INSULIN LISPRO 100 UNITS/ML, PEN SQ-INSULIN SCH ×4 (08:24→21:00)
[2019-10-14] MEDS: ENOXAPARIN 80 MG/0.8 ML SQ SCH ×2 (08:26→21:16)
[2019-10-14] MEDS: ASCORBIC ACID 500 MG TABLET PO SCH ×3 (08:29→21:16)
[2019-10-14] MEDS: ZINC SULFATE 220 MG CAPSULE PO SCH (08:29)
[2019-10-14] MEDS: CHOLECALCIFEROL 1,000 UNIT TABLET PO SCH (08:29)
[2019-10-14] MEDS: FAMOTIDINE 20 MG TABLET PO SCH ×2 (08:29→21:16)
[2019-10-14] MEDS: SENNA/DOCUSATE TABLET PO SCH (08:30)
[2019-10-14] MEDS: POTASSIUM CHLORIDE 20 MEQ TAB.ER.PRT PO SCH (08:30)
[2019-10-14 08:35] VITALS: BP 153/81
[2019-10-14] MEDS ORDERED: methylPREDNISolone SOD SUCC 40 MG/ML IVPush SCH (09:00)
[2019-10-14] MEDS: INSULIN GLARGINE 100 UNITS/ML, PEN SQ-INSULIN SCH ×2 (10:08→21:16)
[2019-10-14 14:00] VITALS: BP 141/77
[2019-10-14 18:35] VITALS: BP 123/74
[2019-10-14] MEDS: MELATONIN 5 MG TABLET PO SCH (21:17)
[2019-10-15 00:16] VITALS: BP 122/69
[2019-10-15] MEDS: ALBUTEROL HFA 90 MCG/SPRAY INH SCH ×2 (05:21→10:55)
[2019-10-15 06:50] VITALS: BP 128/81
[2019-10-15] MEDS ORDERED: PRED10TA PO (07:29)
[2019-10-15] MEDS ORDERED: ASCO500T9 PO (07:29)
[2019-10-15] MEDS ORDERED: PANT40TA3 PO (07:29)
[2019-10-15] MEDS ORDERED: MELA5TAB14 PO (07:29)
[2019-10-15] MEDS ORDERED: INSU100I11 SQ-INSULIN (07:29)
[2019-10-15] MEDS ORDERED: CHOL10003 PO (07:29)
[2019-10-15] MEDS ORDERED: ZINC220C7 PO (07:29)
[2019-10-15] MEDS ORDERED: INSU100I13 SQ-INSULIN (07:29)
[2019-10-15 07:31] VITALS: BP 114/73
[2019-10-15] MEDS: INSULIN LISPRO 100 UNITS/ML, PEN SQ-INSULIN SCH ×2 (07:41→10:56)
[2019-10-15] MEDS: CHOLECALCIFEROL 1,000 UNIT TABLET PO SCH (08:08)
[2019-10-15] MEDS: ENOXAPARIN 80 MG/0.8 ML SQ SCH (08:08)
[2019-10-15] MEDS: SENNA/DOCUSATE TABLET PO SCH (08:09)
[2019-10-15] MEDS: ASCORBIC ACID 500 MG TABLET PO SCH (08:09)
[2019-10-15] MEDS: POTASSIUM CHLORIDE 20 MEQ TAB.ER.PRT PO SCH (08:09)
[2019-10-15] MEDS: FAMOTIDINE 20 MG TABLET PO SCH (08:09)
[2019-10-15] MEDS: ZINC SULFATE 220 MG CAPSULE PO SCH (08:09)
[2019-10-15] MEDS: INSULIN GLARGINE 100 UNITS/ML, PEN SQ-INSULIN SCH (08:12)
== END 2019-10-15 12:55 | disposition home or self-care (01) | DRG 177 ==
LOC: ED 10:12 → EDIP 11:51 → 4NW 17:00 → ICU 09-30 10:13 → 4NW 10-09 19:58
PROVIDERS: ADMIT Hospitalist; ATTEND Internal Medicine
DX: U07.1 COVID-19 (principal); J96.01 Acute respiratory failure with hypoxia; J12.89 Other viral pneumonia; E87.1 Hypo-osmolality and hyponatremia; E87.3 Alkalosis; D72.829 Elevated white blood cell count, unspecified; E86.9 Volume depletion, unspecified; R73.9 Hyperglycemia, unspecified; E87.6 Hypokalemia; T38.0X5A Adverse effect of glucocorticoids and synthetic analogues, initial encounter; Z87.442 Personal history of urinary calculi
CPT/HCPCS: 36415; 36600; 71045; 71275; 80048; 80053; 82040; 82247; 82565; 82728; 82803; 82947; 82962; 83036; 83605; 83615; 83735; 84075; 84100; 84145; 84439; 84443; 84450; 84460; 85025; 85049; 85379; 85384; 85610; 85730; 86140; 87040; 87081; 93005; 96365; 99285; G0378; J0456; J0696; J1650; J1940; J7060; Q9967; J1815; J2920; J7050; J7120; J7512

== ENCOUNTER 2019-11-04 14:50 | Emergency (ER) | payer BC ==
[~2019-11-04] VITALS: Ht 175.3 cm; Wt 81.1 kg
[~2019-11-04 14:50] MED LIST changes: +ASCO500T9 PO; +CHOL10003 PO; +INSU100I11 SQ-INSULIN; +INSU100I13 SQ-INSULIN; +MELA5TAB14 PO; +PANT40TA3 PO; +PRED10TA PO; +ZINC220C7 PO
[2019-11-04 15:37] VITALS: BP 135/90
[2019-11-04] MEDS ORDERED: DIPH,PERTUSS(ACELL),TET VAC/PF 0.5 ML IM-VACC ONE ×2 (16:00→18:02)
[2019-11-04] MEDS ORDERED: LIDOCAINE-MPF 1%, 5ML INFIL ONE (16:00)
--- NOTE | 2019-11-04 17:07 | NUR ---
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 STEADY UPON AMBULATION. NO ACUTE DISTRESS NOTED.
[2019-11-04] MEDS ORDERED: LIDOCAINE-MPF 1%, 5ML ONE (18:18)
[2019-11-04] MEDS ORDERED: BUPIVACAINE 0.25% ONE (18:18)
--- NOTE | 2019-11-04 18:55 | NUR ---
BEDSIDE REPORT FROM OSHACASEYY, PROVIDER AT BEDSIDE FOR SUTURES.
== END 2019-11-04 19:37 | disposition home or self-care (01) ==
LOC: ED 19:25
DX: S61.213A Laceration without foreign body of left middle finger without damage to nail, initial encounter (principal); W23.1XXA Caught, crushed, jammed, or pinched between stationary objects, initial encounter; Y93.89 Activity, other specified; Y92.098 Other place in other non-institutional residence as the place of occurrence of the external cause; Y99.8 Other external cause status
CPT/HCPCS: 12002; 90471; 90715; 99283